=== PATIENT | male | born 1945 | race Caucasian/White ===

== ENCOUNTER 2025-09-10 07:46 | Outpatient (RCR) | payer OTHER, SELFPAY ==
[2025-09-10] MEDS: SODIUM BICARBONATE 1150 MEQ IV (08:10)
[2025-09-10 08:13] VITALS: BP 102/71
== END 2025-09-14 23:59 | disposition home or self-care (01) ==
LOC: OID 07:46
PROVIDERS: ATTENDING PHYSICIAN Surgery Vascular Surgery; FAMILY PHYSICIAN Family Medicine
DX: I71.40 Abdominal aortic aneurysm, without rupture, unspecified (principal)
CPT/HCPCS: 96365